=== PATIENT | female | born 1950 | race Caucasian/White ===

== ENCOUNTER 2020-05-16 08:19 | Observation (INO) ==
--- NOTE | 2020-04-11 15:46 | PAT Medication Instructions ---
Medication Instructions Date of Service April 11, 2020 Home Medications aspirin 81 mg tablet,delayed release 81 mg PO QAM atorvastatin 20 mg tablet 20 mg PO HS cholecalciferol (vitamin D3) 25 mcg (1,000 unit) capsule 1,000 units PO QAM diclofenac sodium 75 mg tablet,delayed release 75 mg PO BID escitalopram oxalate 10 mg tablet 10 mg PO QAM fexofenadine 180 mg tablet 180 mg PO QAM meclizine 25 mg tablet 25 mg PO DAILY PRN pyridoxine (vitamin B6) 100 mg tablet 100 mg PO QAM ASK your surgeon for instructions diclofenac sodium 75 mg tablet,delayed release 75 mg PO BID DO NOT take the morning of surgery cholecalciferol (vitamin D3) 25 mcg (1,000 unit) capsule 1,000 units PO QAM fexofenadine 180 mg tablet 180 mg PO QAM pyridoxine (vitamin B6) 100 mg tablet 100 mg PO QAM Take morning of surgery With a small sip of water, OTHERWISE NOTHING TO EAT OR DRINK AFTER MIDNIGHT: aspirin 81 mg tablet,delayed release 81 mg PO QAM escitalopram oxalate 10 mg tablet 10 mg PO QAM meclizine 25 mg tablet 25 mg PO DAILY PRN (if needed) Take evening before surgery atorvastatin 20 mg tablet 20 mg PO HS meclizine 25 mg tablet 25 mg PO DAILY PRN (if needed) Other Notes If you have any questions please call us at [phone] or [phone] or [phone] or [phone]
--- NOTE | 2020-04-13 11:40 | Anesthesiology Consultation ---
Date of Service April 13, 2020 Assessment & Plan (1) Encounter for pre-operative examination: Chart Review Chart Review: Acceptable Risk for Surgery (pending preop Covid testing ) and Patient seen in Pre Admission Testing Per PAT appt 04/13/20- patient resides in [facility]. No recent travel. Pt sister travels to [place] but patient has not had contact with sister recently. Educated patient to follow up with surgeon's office regarding Covid testing. Educated on importance of self quarantining, social distancing and wearing mask in public both for the patient and household contacts. Teaching & Discussion Pre-Anesthesia Teaching/Discussion Notes: Instructed NPO after midnight before surgery,except medications with 15 cc of water. Medication instructions provided according to the PAT guidelines. History Surgery Operation Date: 05/16/20 10:40 Proposed Procedures p Left Total Knee Arthroplasty - Michael Carmona MD Height/Weight Height: 5 ft 4 in Weight: 67.2 kg Allergies Allergy/AdvReac Type Severity Reaction Status Date / Time acetaminophen [From Vicodin] AdvReac vertigo Verified 04/03/20 09:08 hydrocodone [From Vicodin] AdvReac vertigo Verified 04/03/20 09:08 meperidine [From Demerol] AdvReac vertigo Verified 04/03/20 09:08 propoxyphene [From Darvon] AdvReac vertigo Verified 04/03/20 09:08 Medications Home Medications Medication Instructions Recorded Confirmed Last Taken aspirin 81 mg tablet,delayed 81 mg PO QAM 08/19/19 04/03/20 Unknown release atorvastatin 20 mg tablet 20 mg PO HS 08/19/19 04/03/20 Unknown cholecalciferol (vitamin D3) 25 1,000 units PO QAM 08/19/19 04/03/20 Unknown mcg (1,000 unit) capsule diclofenac sodium 75 mg 75 mg PO BID 08/19/19 04/03/20 Unknown tablet,delayed release escitalopram oxalate 10 mg tablet 10 mg PO QAM 08/19/19 04/03/20 Unknown fexofenadine 180 mg tablet 180 mg PO QAM 08/19/19 04/03/20 Unknown meclizine 25 mg tablet 25 mg PO DAILY PRN 08/19/19 04/03/20 Unknown pyridoxine (vitamin B6) 100 mg 100 mg PO QAM 08/19/19 04/03/20 Unknown tablet Past Medical History Medical History Anxiety Herniated disc "lower back" - L5-S1- with mild stenosis Hyperlipidemia Osteoarthritis Spinal stenosis Vertigo No issues x years Exercise / Class Metabolic Activity II 4-5 Yardwork/Stairs/Walk up hill (one flight of stairs- no chest pain or SOB ) Past Family History Family History Grandmother (Paternal) Diabetes Father Diabetes Other No family history of adverse response to anesthesia Past Surgical History Surgical History History of removal of cyst Only done under local anesthesia History of tooth extraction Only done under local anesthesia History of wisdom tooth extraction Only done under local anesthesia Past Anesthesia History No Hx of Anesthesia Complications (only has had local anesthesia- has never had sedation or GA) and No Family Hx of Anesthesia Complications History of PONV Hx of Motion Sickness Social History Smoking Status: Never smoker Do You Dip or Chew Tobacco: No Hx Alcohol Use: No Hx Substance Use: No substance use type: does not use Review of Systems Patient denies chest pain, shortness of breath, dyspnea on exertion, reflux, cough, wheezing, palpitations. No hx of seizures, stroke, HI, apnea/snoring. No hx of blood clots or blood transfusions Physical Exam Vital Signs VITALS BP 128/70 P 61 TEMP 98.8 SP02 97% RESP 16 Constitutional no acute distress ENMT Mouth: no TMJ clicking Thyromental Distance: > or= 3.5 Finger Breadths (3.5) Mallampati Class: III Missing molars Neck neck extension not limited Respiratory normal respiratory effort; no respiratory distress Auscultation: lungs clear to auscultation bilaterally; no wheezes Cardiovascular Rate/Rhythm: regular rate and regular rhythm Heart Sounds: no murmur Vessels: no carotid bruit Musculoskeletal Spine: no pain with cervical ROM Neurologic moves all extremities Psychiatric Orientation: alert Testing Laboratory Results 04/13/20 11:53 04/13/20 11:53 PT 10.6 Seconds (9.0-12.0) 04/13/20 11:53 INR 1.0 (0.9-1.1) 04/13/20 11:53 APTT 27.1 Seconds (21.0-31.0) 04/13/20 11:53 Blood Type A Positive 04/13/20 11:53 Antibody Screen NEGATIVE 04/13/20 11:53 Electrocardiogram Date: 04/13/20 Findings: + SB @ (54) Chest X-Ray Date: 04/13/20 Findings: + NAD
--- NOTE | 2020-04-13 12:25 | XRay Report ---
XR chest Pre-admission PA/Lat HISTORY: Preop. COMPARISON: None. FINDINGS: The lungs are clear. Cardiac silhouette is normal in size. No pleural effusions. No pneumot horax. IMPRESSION: No acute process. ACT 112: Negative or not required by law. Electronically signed by: Marcel Phillips M.D. 04/13/2020 12:23 PM
[2020-04-13 14:30] LABS: Basophils # (auto) 0.03 K/uL (0-0.2); Basophils % (auto) 0.7 %; Eosinophils # (auto) 0.13 K/uL (0-0.5); Eosinophils % (auto) 2.9 %; Hematocrit (blood only) 38.1 % (37-47); Hemoglobin 12.9 g/dL (12.0-16.0); Lymphocytes # (auto) 1.27 K/uL (1.2-3.4); Lymphocytes % (auto) 28.2 %; Mean Corpuscular Hemoglobin 29.3 pg (25-34); Mean Corpuscular Hgb Conc 33.9 g/dL (32-36); Mean Corpuscular Volume 86.4 fL (80-100); Mean Platelet Volume 11.2 fL (7.4-10.4); Monocytes # (auto) 0.24 K/uL (0.11-0.59); Monocytes % (auto) 5.3 %; Neutrophils # (auto) 2.83 K/uL (1.4-6.5); Neutrophils % (auto) 62.9 %; Partial Thromboplastin Time 27.1 Seconds (21.0-31.0); Platelet Count 178 K/uL (130-400); Prothrombin Time 10.6 Seconds (9.0-12.0); RDW Standard Deviation 41.3 fL (36.4-46.3); Red Blood Count 4.41 M/uL (4.2-5.4)
[2020-04-13 14:34] LABS: Calcium 9.3 mg/dl (8.5-10.1); Creatinine Clr Calc Pharmacy 63.4 ml/min; Est GFR (African American) 87.8; Est GFR (Non-African American) 75.8; Potassium 4.6 mmol/L (3.5-5.1)
--- NOTE | 2020-04-13 19:09 | Electrocardiogram Report ---
Test Reason : Blood Pressure : / mmHG Vent. Rate : 054 BPM Atrial Rate : 054 BPM P-R Int : 140 ms QRS Dur : 076 ms QT Int : 434 ms P-R-T Axes : 016 037 061 degrees QTc Int : 411 ms Sinus bradycardia Otherwise normal ECG No previous ECGs available Confirmed by Jason Loyola ([id number]) on 04/13/2020 7:08:40 PM Referred By: Michael Carmona Confirmed By:David Loyola
--- NOTE | 2020-05-12 18:25 | History and Physical Report ---
DATE OF ADMISSION: 05/16/2020 CHIEF COMPLAINT: Progressive left knee pain and discomfort. HISTORY OF PRESENT ILLNESS: The patient is a 69-year-old female from [place] who presents for surgical treatment of her left knee. I have been following her for the past 2 years. She has been through extensive conservative management of her knee, which has become less successful over time. She has had both steroid shots and viscosupplementation, which have not helped much. Pain has gradually gotten worse. Her knee has become more stiff. It hurts all the time. The more she walks, the more it hurts and she limps more as the day goes on. She has difficulty straightening her knee the whole way. It occasionally gives out. She would like to have her knee fixed. PAST MEDICAL HISTORY: Significant for depression. PAST SURGICAL HISTORY: Includes a cyst removed from her chin. ALLERGIES: VICODIN, DARVON, DEMEROL WHICH CAUSE EQUILIBRIUM ISSUES. She does okay with Percocet. CURRENT MEDICINES: Include: 1. Diclofenac. 2. Lexapro. 3. Lipitor. 4. Aspirin. 5. Ne. 6. Vitamin B6. 7. Vitamin D3. SOCIAL HISTORY: Significant for a 69-year-old female. She is . She is from [place]. Does not smoke. Rare alcohol intake. FAMILY HISTORY: Significant for heart disease, diabetes, uterine cancer. REVIEW OF SYSTEMS: Negative for diabetes, neurologic problem, vascular problems or bleeding disorders. Denies any chest pain or shortness of breath. No history of DVT or PE. No known bleeding problems. PHYSICAL EXAMINATION: GENERAL: Shows a pleasant, healthy appearing middle-aged female. HEENT: Benign. NECK: Supple, no lymphadenopathy. LUNGS: Clear to auscultation. HEART: Has regular rate and rhythm. ABDOMEN: Soft, nontender, nondistended. EXTREMITIES: Grossly neurovascularly intact except as follows: Examination of the left knee and leg reveals the patient walks with a bit of a stiff knee gait. She has difficulty fully straightening her knee and kind of swings it when she walks. Her range of motion is about 20 degrees short of full extension to about 100 degrees of flexion and pretty stiff. There is no instability. No pain with hip motion. X-RAYS: X-rays of the left knee from previously were reviewed. It shows advanced left knee tricompartment DJD. She has a complete loss of medial joint space. She has cystic change in the medial femoral condyle and medial tibial plateau. She may have had some AVN in the medial femoral condyle as well. ASSESSMENT: A 69-year-old white female with advanced left knee degenerative joint disease. She has failed conservative treatment and would like to have her knee fixed. Her knee is pretty stiff. PLAN: We are going to take her to the operating room and do a left total knee replacement. The risks and benefits of this procedure were explained to the patient including but not limited to DVT, PE, , infection, neurological injury, vascular injury, bleeding problems, limited range of motion, stiffness, incomplete relief of symptoms, need for further surgery in the future, need for blood transfusion, etc. The patient understands and desires to proceed. Informed consent was obtained. I did tell her we are going to work very hard on getting her knee straight. We will have it straight at the time of surgery and this can be worked for her to keep it straight. As far as pain medicine, we will likely use either some tramadol and maybe some Percocet due to her reaction to other meds. She is planning to be discharged home using [facility] home health program.
[~2020-05-16 08:19] MED LIST: ACETAMINOPHEN 500 MG TAB PO SCH; BUPIVACAINE 0.5 % 5 MG/1 ML PF 10ML VIAL ONE; BUPIVACAINE LIPOSOME/PF 266 MG, BUPIVACAINE/EPINEPHRINE 50 ML, SODIUM CHLORIDE 0.9% 30 ... INFIL SCH; CEFAZOLIN 2000MG 2,000 MG/15 ML SYR IV SCH; EPINEPHrine INJ 1 MG/ML AMP ONE; FAMOTIDINE 20 MG TAB PO SCH; GABAPENTIN 300 MG CAP PO SCH; LR 500ML BOLUS, THEN 15ML/HR IV SCH; LR 60ML/HR IV SCH; METOCLOPRAMIDE HCL 10 MG TABLET PO SCH; ROPIVACAINE 0.5% 5 MG/ML 30 ML VIAL ONE; TRANEXAMIC ACID 1,000 MG **IV Intra-op IV SCH
--- NOTE | 2020-05-16 08:46 | History & Physical Bridge Note ---
Date of Service May 16, 2020 History & Physical Bridge Note I have examined the patient, reviewed the History & Physical and in the interval since the performance of the History & Physical I have noted the following changes of clinical significance: no changes noted
[2020-05-16] MEDS ORDERED: MIDAZOLAM HCL 1 MG/ML 2ML VIAL ONE (09:00)
[2020-05-16] MEDS ORDERED: fentaNYL citrate 100 MCG/2 ML VIAL ONE (09:00)
[2020-05-16] MEDS ORDERED: BACITRACIN INJ 50,000 UNIT VIAL ONE (10:39)
[2020-05-16] MEDS ORDERED: SODIUM CHLORIDE 0.9% PF 50 ML VIAL ONE (10:39)
[2020-05-16] MEDS ORDERED: BUPIVACAINE/EPINEPHRINE 0.25% 1:200,000 30 ML VIAL ONE (10:39)
[2020-05-16] MEDS ORDERED: BUPIVACAINE LIPOSOME 1.3% 266 MG/20 ML VIAL ONE (10:39)
[2020-05-16] MEDS ORDERED: ATROPINE SULFATE 0.1 MG/ML 10ML SYR IV PRN (11:02)
[2020-05-16] MEDS ORDERED: ePHEDrine sulfate 50 MG/ML AMP IV PRN (11:02)
[2020-05-16] MEDS ORDERED: PROPOFOL IV EMULSION 10 MG/ML 20 ML VIAL IV ONE (11:40)
--- NOTE | 2020-05-16 12:34 | Post Operative Brief Note ---
PG Immediate Post Op with CF Date of Surgery May 16, 2020 Pre & Post Diagnosis Operation Date: 05/16/20 10:40 Pre-Op Diagnosis: Left Knee Advanced Degenerative Joint Disease Post-Op Diagnosis: Left Knee Advanced Degenerative Joint Disease I identified the patient and participated in the time-out.: Yes Procedure Operation Date: 05/16/20 10:40 Actual Procedures p Left Total Knee Arthroplasty(Left) - Michael Carmona MD Surgeon Michael Carmona MD Telecasting Engineer Tamiko, PAC Estimated Blood Loss 50 Findings Consistent with Post-Op Diagnosis Fluids 1000 cc Specimens Specimen Description: A. left knee- bone and tissue Drains Patiño Catheter Anesthesia Type Spinal MAC Complications none Disposition Accompanied Patient To Recovery: No Disposition: Recovery Room
--- NOTE | 2020-05-16 12:46 | Operative Report ---
Post Operative Report Pre & Post Diagnosis Operation Date: 05/16/20 10:40 Pre-Op Diagnosis: Left Knee Advanced Degenerative Joint Disease Post-Op Diagnosis: Left Knee Advanced Degenerative Joint Disease I identified the patient and participated in the time-out.: Yes Procedure Operation Date: 05/16/20 10:40 Actual Procedures p Left Total Knee Arthroplasty(Left) - Michael Carmona MD Surgeon Michael Carmona MD Director Transition Tamiko, PAC Estimated Blood Loss 50 Findings Consistent with Post-Op Diagnosis Operative findings revealed advanced left knee DJD. She had extensive grade 4 changes in the medial compartment and more spotty changes in the patellofemoral and lateral compartments. She had a fixed varus deformity to her knee and about a 15 to 20 degree flexion contracture. Fluids 1000 cc. Specimens Left knee sent for pathology. Drains None. Complications none Disposition Accompanied Patient To Recovery: No Disposition: Recovery Room Indications Patient is a 69-year-old fairly active female is had a several year history of increasing left knee pain discomfort. We have been treating her extensively over the past 2 years which is become less successful. X-rays show advanced medial compartment arthritis. She elected proceed with surgical treatment. Description of Procedure Operative implants consist of: 1. Biomet Vanguard size 62.5 left posterior stabilized femoral component. 2. Biomet size 67 tibial tray. 3. 10 mm posterior stabilized polyethylene insert. 4. 28 x 8 all poly-patella. The patient was taken to the operating room identified and placed on the operating table supine position. All contact areas were properly padded. IV antibiotics arrived by anesthesia team. Spinal anesthetic and abductor canal block had been provided holding area. Patiño catheter was placed in sterile fashion. A left thigh turn was then placed in the left lower extremity was then prepped and draped in usual sterile fashion. The left leg was elevated exsanguinated with use of an Esmarch and turns placed at 300 mmHg. An anterior posterior left knee was then performed through a longitudinal incision centered over the patella. Sharp dissection was got through subcutaneous tissue down to level of the extensor mechanism. A medial parapatellar arthrotomy incision was made. Some subperiosteal dissection was carried out medially. The fat pad was resected from each patella tendon. The lateral patellofemoral ligament was released. Patella was subluxated laterally and the knee was flexed. The osteophytes were taken off the distal femur. The ACL and PCL were then released from distal femur and the tibia subluxate anteriorly. The external tibial alignment jig was then placed in the interface the tibia and adjusted 14 mm medially. Proximal tibial cut was made to remove about 1 to 2 mm of bone from most efficient aspect medial till plateau. Some osteophytes were taken off posterior medially. I did relieve a significant amount of her semi-member gnosis in order to help assist correcting her flexion contracture. Attention then drawn the femur. The distal femur was entered with a sharp drop with intramedullary canal was suction. A left 5 degree valgus cutting guide was placed. Distal femoral cutting block was pinned in place but distal femoral cut was made to take an additional 3 mm of bone off distal femur. Femur was then sized to a size 62.5. The AP cutting block was pinned parallel to the epicondylar axis which was 5 degrees of external rotation. The anterior cut, anterior chamfer, posterior cut, posterior chamfer cuts were made. Box cutting guide was placed in just slight lateral box cut was made. The knee was flexed. The remnants of the medial lateral menisci were excised. The osteophytes were taken off the posterior aspect the femur. A trial femoral component was placed. The tibial tray was pinned in maximum external rotation and the drill and stem punch were used to create defect in proximal tip for the tibial tray. The knee was then trialed the 10 mm insert fit most appropriately. Attention drawn the patella. The patella was cleaned of all soft tissues. Patella thickness measured 19 mm in thickness and was cut down to 12. Was sized to a size 28 patella. Locals were drilled for the 28 patella. Lateral osteophyte is moved. Patella button was placed. Knee was taken through range of motion patella tracked nicely with no thumbs test. Attention drawn to placing the permanent components. All trial components were removed. Bone plug was placed into the distal femur limit blood loss put a single batch of Palacos G cement was mixed. Biomet CompareNetworksguard size 62.5 left posterior stabilized femoral component, size 67 tibial tray, a 10 mm posterior box polyethylene insert, and a 28 x 8 all poly-patella were then cemented in place. Knee was brought out in full extension until cement hardened. We were able to get her knee perfectly straight without much difficulty. Attention drawn toward closing. The wound was irrigated copious ounce pulsatile lavage solution. I did inject locally with 100 cc of a combination of 20 cc of Exparel, 30 cc of normal saline, 50 cc of quarter percent Marcaine with epinephrine. The tourniquet was let down for final turn time 55 minutes. Hemostasis assured use electrocautery. The wound was once again irrigated. The extensor mechanism closed with #1 PDS suture and #1 Vicryl suture in a [id number] fashion. Extensor mechanism checked found to be intact the subcutaneous tissue then closed with 2 Dexon suture in a buried interrupted fashion skin was closed skin daren. Leg was then cleaned dried a sterile dressing composed Xeroform, 4 x 4's, sterile cast padding Kaushik bandage were applied. Patient then transferred to the recovery room in stable condition. Patient tolerated procedure well and there are no complications. Rush Morrison, my physician customer relations assistant, was present for the entire procedure. His assistance was required for appropriate positioning of the patient, prepping and draping, performing the surgical exposure, performing the technical details of the operation, placing the implants pump, losing the wound, and placement of the sterile bandage. I attest to the content of the Intraoperative Record and any orders documented therein. Any exceptions are noted below.
--- NOTE | 2020-05-16 12:58 | XRay Report ---
TWO VIEWS LEFT KNEE CLINICAL HISTORY: Postoperative examination. FINDINGS: AP and crosstable lateral portable views of the left knee are obtained. A left knee arthrop lasty is in near anatomic alignment. There has been undersurface remodeling of the patella. No acute fracture is seen. There are expected postoperative changes around the knee including skin clips, soft tissue edema, and subcutaneous gas. IMPRESSION: Expected postoperative changes status post left knee arthroplasty. No acute fracture is s een. ACT 112: Negative or not required by law. Electronically signed by: Armando Dickerson M.D. 05/16/2020 12:57 PM
--- NOTE | 2020-05-16 13:08 | Anesthesiology Progress Note ---
Date of Service May 16, 2020 Anesthesia Post Procedure Vital Signs Vital Signs: Temp Pulse Pulse Resp BP Pulse Ox 05/16/20 13:00 61 16 141/67 H 99 05/16/20 12:50 72 24 123/68 100 05/16/20 12:40 36.1 C L 77 18 123/63 100 05/16/20 09:50 56 L 18 144/79 H 94 05/16/20 09:16 37.3 C 61 18 145/75 H 96 Pain Intensity Left Knee: Pain Intensity: 0 Transfer of Care Handoff Completed per policy Notes Mental Status: alert / awake / arousable Patient Amnestic to Procedure: Yes Nausea / Vomiting: adequately controlled Pain: adequately controlled Airway Patency, RR, SpO2: stable & adequate BP & HR: stable & adequate Hydration State: stable & adequate Neuraxial Anesthesia: was administered and sensory block is resolving Anesthetic Complications: no major complications apparent
[2020-05-16] MEDS ORDERED: ALUMINUM/MAGNESIUM SUSP 30 ML UDC PO PRN (13:25)
[2020-05-16] MEDS ORDERED: bisacodyL 10 MG SUPP PR PRN (13:25)
[2020-05-16] MEDS ORDERED: MAGNESIUM HYDROXIDE SUSP 30 ML UDC PO PRN (13:25)
[2020-05-16] MEDS ORDERED: HYDROmorphone INJ 0.5 MG/0.5 ML SYR IV PRN (13:25)
[2020-05-16] MEDS ORDERED: METOCLOPRAMIDE HCL INJ 5 MG/ML 2 ML VIAL IV PRN (13:25)
[2020-05-16] MEDS ORDERED: NALOXONE HCL 0.4 MG/1 ML VIAL/CARP IV PRN (13:25)
[2020-05-16] MEDS ORDERED: OXYCODONE HCL IR 5 MG TAB (IMMEDIATE RELEASE) PO PRN (13:25)
[2020-05-16] MEDS ORDERED: ONDANSETRON INJ 2 MG/ML 2 ML VIAL IV PRN (13:25)
[2020-05-16] MEDS ORDERED: MECLIZINE HCL 25 MG TAB PO PRN (13:38)
[2020-05-16] MEDS: ACETAMINOPHEN 500 MG TAB PO SCH ×2 (14:13→21:38)
[2020-05-16] MEDS: KETOROLAC TROMETHAMINE 15 MG/ML VIAL IV SCH ×2 (14:13→19:01)
[2020-05-16] MEDS: SODIUM CHLORIDE 0.9% 1000ML 1,000 ML IV SCH ×2 (14:16→23:33)
[2020-05-16] MEDS: Scopolamine CHECK PATCH PLACEMENT SCH ×2 (15:57→23:37)
[2020-05-16] MEDS: ASCORBIC ACID 500 MG TAB PO SCH (17:54)
[2020-05-16] MEDS: FERROUS GLUCONATE 324 MG TAB PO SCH (17:54)
[2020-05-16] MEDS ORDERED: TRANEXAMIC ACID / 0.7% NACL 1,000 MG/100 ML BAG IV SCH (18:38)
[2020-05-16] MEDS: CEFAZOLIN 1000MG 1,000 MG/7.5 ML SYR IV SCH (19:01)
[2020-05-16] MEDS: ASPIRIN 81 MG ECTAB PO SCH (20:18)
[2020-05-16] MEDS: ATORVASTATIN 20 MG TAB PO SCH (20:18)
[2020-05-16] MEDS: SENNA 8.6 MG TAB PO SCH (20:19)
[2020-05-16] MEDS: DOCUSATE SODIUM 100 MG CAP PO SCH (20:19)
[2020-05-17] MEDS: KETOROLAC TROMETHAMINE 15 MG/ML VIAL IV SCH ×4 (03:09→19:44)
[2020-05-17] MEDS: ACETAMINOPHEN 500 MG TAB PO SCH ×3 (03:09→22:01)
[2020-05-17] MEDS: CEFAZOLIN 1000MG 1,000 MG/7.5 ML SYR IV SCH (03:10)
[2020-05-17 05:54] LABS: Hematocrit (blood only) 32.9 % (37-47); Hemoglobin 11.2 g/dL (12.0-16.0); Mean Corpuscular Hemoglobin 29.4 pg (25-34); Mean Corpuscular Volume 86.4 fL (80-100); Mean Platelet Volume 11.3 fL (7.4-10.4); Platelet Count 156 K/uL (130-400); RDW Coefficient of Variation 12.9 % (11.5-14.5); RDW Standard Deviation 40.9 fL (36.4-46.3); Red Blood Count 3.81 M/uL (4.2-5.4); White Blood Count 5.51 K/uL (4.8-10.8)
[2020-05-17] MEDS: ESCITALOPRAM OXALATE 10 MG TAB PO SCH (06:00)
[2020-05-17 06:20] LABS: BUN Creatinine Ratio 12.8 (10-20); Calcium 7.9 mg/dl (8.5-10.1); Creatinine Clr Calc Pharmacy 66.7 ml/min; Est GFR (African American) 93.4; Est GFR (Non-African American) 80.6
[2020-05-17] MEDS: Scopolamine CHECK PATCH PLACEMENT SCH ×2 (08:29→16:06)
[2020-05-17] MEDS: FERROUS GLUCONATE 324 MG TAB PO SCH ×2 (08:30→17:55)
[2020-05-17] MEDS: PYRIDOXINE HCL 50 MG TAB PO SCH (08:30)
[2020-05-17] MEDS: CHOLECALCIFEROL 1,000 UNITS 25 MCG TAB PO SCH (08:30)
[2020-05-17] MEDS: FEXOFENADINE HCL 180 MG TAB PO SCH (08:30)
[2020-05-17] MEDS: ASCORBIC ACID 500 MG TAB PO SCH ×2 (08:30→17:55)
[2020-05-17] MEDS: DOCUSATE SODIUM 100 MG CAP PO SCH ×2 (08:30→20:54)
[2020-05-17] MEDS: MULTIVITAMIN TAB PO SCH (08:30)
[2020-05-17] MEDS: ASPIRIN 81 MG ECTAB PO SCH ×2 (08:30→20:54)
--- NOTE | 2020-05-17 16:32 | Progress Notes ---
DATE: 05/17/2020 SUBJECTIVE: 69-year-old white female postop day 1 from a left knee replacement. She is doing pretty well. Pain has been reasonably well controlled. Did not do very well with oxycodone last night as it made her dizzy. She wants to try tramadol. No chest pain or shortness of breath. Not feeling dizzy or lightheaded. OBJECTIVE: VITAL SIGNS: Temperature 37.4. Vital signs stable. GENERAL: Shows a pleasant elderly female. She is walking around the room pretty comfortably with a walker. LUNGS: Clear to auscultation. HEART: Has a regular rate and rhythm. ABDOMEN: Soft, nontender, nondistended. EXTREMITIES: Grossly neurovascularly intact except as follows: Examination of the left lower extremity reveals the leg to be well aligned. Dressing is clean, dry and intact. She can dorsiflex and plantarflex her foot appropriately. She is neurologically intact. LABORATORY DATA: Hemoglobin is 11.2. Hematocrit 32.9. Electrolytes are stable. ASSESSMENT: 69-year-old white female postop day 1 from left knee replacement, doing pretty well. Did not do real well with the oxycodone. She would like to try tramadol. She is neurologically intact. PLAN: 1. DVT prophylaxis including thigh-high TEDs, SCDs, and aspirin twice a day. 2. PT/OT. Weight bear as tolerated. Left total knee protocol. 3. Pain control, doing okay with current pain regimen. We are going to change her from oxycodone to tramadol. 4. Disposition: She is planning to be discharged to home with some home health once adequately recovered and medically stable.
[2020-05-17] MEDS: TRAMADOL HCL 50 MG TABLET PO PRN (17:55)
[2020-05-17] MEDS: ATORVASTATIN 20 MG TAB PO SCH (20:55)
[2020-05-17] MEDS: SENNA 8.6 MG TAB PO SCH (20:55)
[2020-05-18] MEDS: KETOROLAC TROMETHAMINE 15 MG/ML VIAL IV SCH ×2 (01:53→07:28)
[2020-05-18] MEDS: ACETAMINOPHEN 500 MG TAB PO SCH (05:42)
[2020-05-18] MEDS: TRAMADOL HCL 50 MG TABLET PO PRN (05:44)
[2020-05-18] MEDS: ESCITALOPRAM OXALATE 10 MG TAB PO SCH (07:27)
[2020-05-18] MEDS: ASCORBIC ACID 500 MG TAB PO SCH (07:27)
[2020-05-18] MEDS: CHOLECALCIFEROL 1,000 UNITS 25 MCG TAB PO SCH (07:27)
[2020-05-18] MEDS: DOCUSATE SODIUM 100 MG CAP PO SCH (07:27)
[2020-05-18] MEDS: PYRIDOXINE HCL 50 MG TAB PO SCH (07:27)
[2020-05-18] MEDS: FEXOFENADINE HCL 180 MG TAB PO SCH (07:27)
[2020-05-18] MEDS: FERROUS GLUCONATE 324 MG TAB PO SCH (07:27)
[2020-05-18] MEDS: MULTIVITAMIN TAB PO SCH (07:27)
[2020-05-18] MEDS: ASPIRIN 81 MG ECTAB PO SCH (07:27)
[2020-05-18] MEDS: Scopolamine CHECK PATCH PLACEMENT SCH ×2 (07:28)
--- NOTE | 2020-05-18 08:24 | Progress Notes ---
DATE: 05/18/2020 SUBJECTIVE: A 69-year-old white female postop day 2 from left knee replacement. She is doing pretty well. She was switched to oxycodone to tramadol. Says the tramadol does not work much, but does not cause the side effects. No chest pain or shortness of breath. Not feeling dizzy or lightheaded. OBJECTIVE: VITAL SIGNS: Temperature 37.4. Vital signs stable. GENERAL: Shows a pleasant, middle-aged female. She is lying in bed, looks pretty comfortable this morning. Examination of the left leg reveals the leg to be well aligned. Dressing is clean, dry and intact. Calf is soft and supple. She is neurologically intact. ASSESSMENT: A 69-year-old white female postop day 2 from a left knee replacement, doing reasonably well. Having a little difficulty adjusting pain medicines between the effectiveness and side effects. She has decided she would like to just stick with the tramadol. PLAN: 1. DVT prophylaxis including thigh-high TEDs, SCDs, and aspirin twice a day. 2. PT/OT. Weightbear as tolerated. Left total knee protocol. 3. Pain control, doing well with current pain regimen. We are going to stick with the tramadol for pain as well as Tylenol. 4. Disposition: Plan to discharge to home with some home health likely later today.
--- NOTE | 2020-05-25 15:45 | Discharge Summary ---
Date of Service May 25, 2020 Admission HPI Per Admitting Provider Documented in the H & P Admission Exam (Per Admitting) Constitutional Documented in the H & P Discharge Data Consultations 05/16/20 13:25 Consult Case Management - Discharge Planning Routine Procedures Performed Operation Date: 05/16/20 10:40 Actual Procedures p Left Total Knee Arthroplasty(Left) - Michael Carmona MD Hospital Course (1) Status post total left knee replacement: This patient is a 69 y/o female admitted on 05/16/20 and underwent total knee arthroplasty. She tolerated the procedure well and there were no complications. Transferred to the PACU post op and later to the orthopedic floor for further care. She was given ancef for antibiotic prophylaxis. She was also given MONE stockings, SCDs, and aspirin for DVT prophylaxis. Hemoglobin, hematocrit, and vital signs were monitored during her hospital stay and remained stable. Did not require any blood transfusions. There were no complications during her hospital stay. By post op day #2 the patient was tolerating a regular diet, pain was reasonably controlled with oral pain medicine, and she was participating in physical therapy. On post op day #2 the patient was discharged home and set up with home health care. She was given printed discharge instructions including prescriptions for extra strength tylenol, aspirin, and tramadol. Continue physical therapy, weight bearing as tolerated. Continue MONE stockings. Follow up approximately 2 weeks post op or sooner if there are problems or concerns. Coding Level of Care Code None Diagnoses Status post total left knee replacement Z96.652
== END 2020-05-18 09:49 | disposition home health service (06) ==
LOC: 3E 08:19 → ASU 08:19